=== PATIENT | male | born 1970 | race Caucasian/White ===

== ENCOUNTER 2019-10-18 01:43 | Observation (INO) ==
[2019-10-18 02:00] VITALS: BMI 26.1
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
[2019-10-18] MEDS ORDERED: TORADOL 60 MG VIAL IVP ONE (02:16)
[2019-10-18] MEDS ORDERED: ZOFRAN INJ 4 MG VIAL IVP ONE (02:16)
[2019-10-18 02:40] LABS: BASOPHILS # (AUTO) 0.1 X10^3/uL (0.0-0.1); EOSINOPHILS # (AUTO) 0.2 x10^3/uL (0.0-0.2); EOSINOPHILS % (AUTO) 1.7 % (0.9-2.9); HEMATOCRIT 48.6 % (42.0-54.0); HEMOGLOBIN 16.1 g/dL (13.5-18.0); LYMPHOCYTES # (AUTO) 1.8 X10^3/uL (1.3-2.9); LYMPHOCYTES % (AUTO) 14.7 % (21.0-51.0); MEAN CORPUSCULAR HEMOGLOBIN 28.9 pg (27.0-34.0); MEAN CORPUSCULAR HGB CONC 33.1 g/dL (33.0-35.0); MEAN CORPUSCULAR VOLUME 87.4 fL (80.0-100.0); MEAN PLATELET VOLUME 7.1 fL (7.4-11.0); MONOCYTES # (AUTO) 0.5 x10^3/uL (0.3-0.8); MONOCYTES % (AUTO) 4.5 % (0.0-13.0); NEUTROPHILS # (AUTO) 9.3 x10^3/uL (2.2-4.8); NEUTROPHILS % (AUTO) 78.1 % (42.0-75.0); PLATELET COUNT 202 X10^3/uL (150.0-450.0); RED BLOOD COUNT 5.56 X10^6/uL (4.7-6.0); RED CELL DISTRIBUTION WIDTH 14.1 % (11.6-16.5); WHITE BLOOD COUNT 11.9 X10^3/uL (3.6-10.0)
[2019-10-18 02:49] LABS: ALANINE AMINOTRANSFERASE 20 Units/L (12-78); ALBUMIN 3.7 g/dL (3.4-5.0); ALKALINE PHOSPHATASE 111 Units/L (46-116); AMYLASE 58 Units/L (25-115); ASPARTATE AMINO TRANSFERASE 22 Units/L (15-37); BLOOD UREA NITROGEN 11 mg/dL (7-18); CALCIUM 9.5 mg/dL (8.5-10.1); CARBON DIOXIDE 32.3 mmol/L (21-32); CHLORIDE 103 mmol/L (98-107); CREATININE 1.13 mg/dL (0.70-1.30); LIPASE 106 Units/L (73-393); SODIUM 142 mmol/L (136-145); TOTAL PROTEIN 8.5 g/dL (6.4-8.2); eGFR NON BLACK RACES > 60 (>60)
--- NOTE | 2019-10-18 02:59 | RAD ---
Acute abdomen series three views 4 images supine upright and chestIndication: Abdominal pain.FINDINGSThere is no pneumothorax. Lungs are minimally hyperinflated. There is no consolidation or effusion. Heart size is normal. There is no free air or pneumatosis. Mildly dilated loop of mid abdominal small bowel noted. Small amount of gas stool seen in the colonIMPRESSIONDilated loop of mid abdominal small bowel. Inflammation or developing obstruction possible. Follow-up with surgical evaluation and small-bowel follow-through.Electronically signed by: BRIANNE MAURO (Oct 18, 2019 02:57:51)
[2019-10-18] MEDS ORDERED: TORADOL 30 MG VIAL ONE (03:06)
[2019-10-18] MEDS ORDERED: ZOFRAN INJ 4 MG VIAL ONE (03:06)
--- NOTE | 2019-10-18 08:10 | CT ---
HISTORYAbdominal painSTUDYABDOMEN/PELVIS WITH CONCOMPARISONNoneTECHNIQUEMultiple axial images of the abdomen and pelvis were obtained from the lung bases to the pubic symphysis after the administration of IV contrast. Dose reduction techniques including Automated Exposure Control (AEC) and adjustment of mA and kV were utilized.FINDINGSThe visualized portions of the lung bases are unremarkable . The liver, spleen, pancreas, kidneys, and adrenal glands are unremarkable in their CT appearance. The gallbladder is unremarkable in its CT appearance. Fluid and contrast filled loops of small bowel throughout the central abdomen are observed with decompressed loops of distal ileum noted to be present. Partial small bowel obstruction would be suspected. Continued follow-up evaluation of contrast to the colon will be needed. Air and stool-filled colon is observed without contrast within the colon. Findings would be consistent with partial small bowel obstruction. No bowel wall thickening or bowel dilatation is present. The colon is unremarkable. Specifically, there is no diverticulosis noted within the sigmoid colon. The urinary bladder is grossly unremarkable. The bony structures are grossly intact.IMPRESSIONMultiple contrast in fluid-filled loops of small bowel with distension and minimal dilatation is observed throughout the abdomen. Decompressed loops of distal ileum are observed with an air and stool-filled colon. The findings would be consistent with partial small bowel obstruction continued evaluation will be needed.Electronically signed by: GUZMAN GERARD (Oct 18, 2019 08:09:15)
[2019-10-18] MEDS ORDERED: DEMEROL INJ IVP ONE (08:59)
[2019-10-18] MEDS ORDERED: SOLU-Medrol 125 MG VIAL IVP SCH (09:00)
[2019-10-18] MEDS ORDERED: LASIX IVP SCH (09:00)
[2019-10-18] MEDS ORDERED: DEMEROL INJ ONE (09:01)
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
[2019-10-18] MEDS ORDERED: DEMEROL INJ IVP PRN (09:42)
[2019-10-18] MEDS ORDERED: ROCEPHIN VIAL 1 GRAM IM ONE (09:46)
[2019-10-18] MEDS ORDERED: NS 100 ML IV 100 ML IV ONE (09:50)
[2019-10-18] MEDS ORDERED: PROTONIX INJ 40 MG VIAL ONE (09:50)
[2019-10-18] MEDS ORDERED: D5 1/2 NS 1000 ML 1,000 ML IV ONE (09:51)
[2019-10-18] MEDS ORDERED: PROTONIX INJ 40 MG VIAL 80 MG in NS 100 ML IV 80 ML IV SCH (10:00)
[2019-10-18] MEDS: D5 1/2 NS 1000 ML 1,000 ML IV SCH ×3 (10:03→18:58)
[2019-10-18] MEDS ORDERED: ROCEPHIN VIAL 1 GRAM ONE (10:07)
[2019-10-18] MEDS ORDERED: XYLOCAINE 1 % (PLAIN) ONE (10:07)
[2019-10-18] MEDS ORDERED: XYLOCAINE 1 % (PLAIN) IM ONE (10:17)
[2019-10-18] MEDS ORDERED: ZOFRAN INJ 4 MG VIAL IVP PRN (15:34)
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
[2019-10-18] MEDS: ZOSYN VIAL 3.375 GRAMS 3.375 G in NS 100 ML IV + SPIKE MINIBAG* 100 ML IV SCH ×2 (16:11→21:30)
[2019-10-18 16:32] LABS: BILIRUBIN,URINE 1+ (NEGATIVE); BLOOD/HEMOGLOBIN,URINE 1+ (NEGATIVE); GLUCOSE, URINE NEGATIVE (NEGATIVE); KETONES,URINE 2+ (NEGATIVE); LEUKOCYTE ESTERASE ,URINE 1+ (NEGATIVE); NITRITES,URINE NEGATIVE (NEGATIVE); PROTEIN,URINE 3+ (NEGATIVE); UROBILINOGEN,URINE 2+ (NORMAL)
[2019-10-18 16:50] LABS: APPEARANCE,URINE CLEAR (CLEAR); BACTERIA,URINE NEGATIVE /HPF (NEGATIVE); COLOR,URINE AMBER (YELLOW); RBC,URINE 0-2 /HPF (0-3); SQUAMOUS EPITHELIAL CELL,UR RARE /HPF (NEGATIVE)
[2019-10-18] MEDS: PROTONIX INJ 40 MG VIAL IVP SCH (20:13)
[2019-10-19] MEDS: D5 1/2 NS 1000 ML 1,000 ML IV SCH ×3 (03:00→18:36)
[2019-10-19] MEDS: ZOSYN VIAL 3.375 GRAMS 3.375 G in NS 100 ML IV + SPIKE MINIBAG* 100 ML IV SCH ×3 (05:00→21:26)
[2019-10-19 05:46] LABS: BASOPHILS % (AUTO) 0.4 % (0.2-1.0); EOSINOPHILS # (AUTO) 0.1 x10^3/uL (0.0-0.2); EOSINOPHILS % (AUTO) 1.8 % (0.9-2.9); HEMATOCRIT 44.1 % (42.0-54.0); HEMOGLOBIN 14.7 g/dL (13.5-18.0); LYMPHOCYTES # (AUTO) 1.9 X10^3/uL (1.3-2.9); MEAN CORPUSCULAR HEMOGLOBIN 29.5 pg (27.0-34.0); MEAN CORPUSCULAR HGB CONC 33.3 g/dL (33.0-35.0); MEAN CORPUSCULAR VOLUME 88.5 fL (80.0-100.0); MEAN PLATELET VOLUME 7.7 fL (7.4-11.0); MONOCYTES # (AUTO) 0.6 x10^3/uL (0.3-0.8); MONOCYTES % (AUTO) 8.6 % (0.0-13.0); NEUTROPHILS # (AUTO) 4.7 x10^3/uL (2.2-4.8); NEUTROPHILS % (AUTO) 63.2 % (42.0-75.0); PLATELET COUNT 215 X10^3/uL (150.0-450.0); RED BLOOD COUNT 4.98 X10^6/uL (4.7-6.0); RED CELL DISTRIBUTION WIDTH 14.2 % (11.6-16.5); WHITE BLOOD COUNT 7.4 X10^3/uL (3.6-10.0)
[2019-10-19 05:56] LABS: ALANINE AMINOTRANSFERASE 17 Units/L (12-78); ALBUMIN 2.8 g/dL (3.4-5.0); ALKALINE PHOSPHATASE 83 Units/L (46-116); ASPARTATE AMINO TRANSFERASE 18 Units/L (15-37); BLOOD UREA NITROGEN 13 mg/dL (7-18); CALCIUM 8.6 mg/dL (8.5-10.1); CARBON DIOXIDE 31.3 mmol/L (21-32); CHLORIDE 103 mmol/L (98-107); COR CA(FOR HYPOALB) 9.6 mg/dL (8.5-10.1); CREATININE 1.14 mg/dL (0.70-1.30); SODIUM 140 mmol/L (136-145); TOTAL PROTEIN 6.9 g/dL (6.4-8.2); eGFR NON BLACK RACES > 60 (>60)
--- NOTE | 2019-10-19 06:37 | RAD ---
HISTORYAbdominal painSTUDYKUBCOMPARISONCT abdomen pelvis 10/18/2019FINDINGSThere are some mildly dilated small bowel loops in the left upper quadrant but with gas distally within more normal small bowel in the right lower quadrant and within the colon. Findings could still be consistent with a partial small bowel obstruction versus ileus. No abnormal masses or abnormal calcifications are identified. The regional skeleton is intact.IMPRESSIONFindings consistent either with a mild partial small bowel obstruction or ileusElectronically signed by: CARITO VEGA (Oct 19, 2019 06:36:29)
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
[2019-10-19] MEDS: PROTONIX INJ 40 MG VIAL IVP SCH ×2 (10:22→21:27)
--- NOTE | 2019-10-19 11:19 | DR.PROGNOT ---
Hospital Progress Notes - Progress Note for Day of: Progress Note Date: 10/19/19 - Chief Complaint Chief Complaint: less abdominal pain . no nausea or vomiting today . abdominal xray still showing partial SBO . had small BM last night. - Past Medical Family Social History Past Med/Fam/Surg Hx: No changes since H&P Allergies: Allergies No Known Drug Allergies Allergy (Verified 10/18/19 02:01) - Review Of Systems ROS: No change since H&P - Vital Signs Vital Signs: Temperature 98.2 F Pulse Rate [Right Brachial] 80 Pulse Rate 73 Respiratory Rate 18 Blood Pressure [Right Arm] 128/72 Blood Pressure [Left Arm] 135/79 Blood Pressure 159/83 O2 Sat by Pulse Oximetry 98 - Physical Exam Oriented: Normal Eyes: Normal Respiratory: Normal Cardiovascular: Normal GI:Auscultation: Decreased GI: Tenderness: Mild, Periumbilical Skin: Normal Musculoskeletal: Normal Psychiatric: Normal Mood Description: Calm Affect: Normal Speech Pattern: Clear, Appropriate - Laboratory and Diagnostics Result Diagrams: 10/19/19 05:03 10/19/19 05:03 Labs: Laboratory WBC 7.4 X10^3/uL (3.6-10.0) 10/19/19 05:03 RBC 4.98 X10^6/uL (4.7-6.0) 10/19/19 05:03 Hgb 14.7 g/dL (13.5-18.0) 10/19/19 05:03 Hct 44.1 % (42.0-54.0) 10/19/19 05:03 MCV 88.5 fL (80.0-100.0) 10/19/19 05:03 MCH 29.5 pg (27.0-34.0) 10/19/19 05:03 MCHC 33.3 g/dL (33.0-35.0) 10/19/19 05:03 RDW 14.2 % (11.6-16.5) 10/19/19 05:03 Plt Count 215 X10^3/uL (150.0-450.0) 10/19/19 05:03 MPV 7.7 fL (7.4-11.0) 10/19/19 05:03 Neut % (Auto) 63.2 % (42.0-75.0) 10/19/19 05:03 Lymph % (Auto) 26.0 % (21.0-51.0) 10/19/19 05:03 [place] % (Auto) 8.6 % (0.0-13.0) 10/19/19 05:03 Eos % (Auto) 1.8 % (0.9-2.9) 10/19/19 05:03 Baso % (Auto) 0.4 % (0.2-1.0) 10/19/19 05:03 Neut # (Auto) 4.7 x10^3/uL (2.2-4.8) 10/19/19 05:03 Lymph # (Auto) 1.9 X10^3/uL (1.3-2.9) 10/19/19 05:03 [place] # (Auto) 0.6 x10^3/uL (0.3-0.8) 10/19/19 05:03 Eos # (Auto) 0.1 x10^3/uL (0.0-0.2) 10/19/19 05:03 Baso # (Auto) 0.0 X10^3/uL (0.0-0.1) 10/19/19 05:03 Absolute Nucleated RBC 0.0 /100WBC 10/19/19 05:03 Sodium 140 mmol/L (136-145) 10/19/19 05:03 Corrected Sodium TNP 10/19/19 05:03 Potassium 3.8 mmol/L (3.5-5.1) 10/19/19 05:03 Chloride 103 mmol/L (98-107) 10/19/19 05:03 Carbon Dioxide 31.3 mmol/L (21-32) 10/19/19 05:03 BUN 13 mg/dL (7-18) 10/19/19 05:03 Creatinine 1.14 mg/dL (0.70-1.30) 10/19/19 05:03 Est GFR (MDRD) Af Amer > 60 (>60) 10/19/19 05:03 Est GFR (MDRD) Non-Af > 60 (>60) 10/19/19 05:03 Glucose 102 mg/dL (65-99) H 10/19/19 05:03 Calcium 8.6 mg/dL (8.5-10.1) 10/19/19 05:03 Corrected Calcium 9.6 mg/dL (8.5-10.1) 10/19/19 05:03 Magnesium 1.8 mg/dL (1.7-2.9) 10/19/19 05:03 Total Bilirubin 0.70 mg/dL (0.2-1.0) 10/19/19 05:03 AST 18 Units/L (15-37) 10/19/19 05:03 ALT 17 Units/L (12-78) 10/19/19 05:03 Alkaline Phosphatase 83 Units/L (46-116) 10/19/19 05:03 Total Protein 6.9 g/dL (6.4-8.2) 10/19/19 05:03 Albumin 2.8 g/dL (3.4-5.0) L 10/19/19 05:03 Globulin 4.1 g/dL (2.5-4.5) 10/19/19 05:03 Albumin/Globulin Ratio 0.7 Ratio (1.1-2.1) L 10/19/19 05:03 Amylase 58 Units/L (25-115) 10/18/19 02:25 Lipase 106 Units/L (73-393) 10/18/19 02:25 Specimen Type Clean catch urine 10/18/19 16:11 Urine Color [place] (YELLOW) 10/18/19 16:11 Urine Appearance Clear (CLEAR) 10/18/19 16:11 Urine pH 5.0 (5.0 - 8.0) 10/18/19 16:11 Ur Specific [place] 1.015 (1.000-1.030) 10/18/19 16:11 Urine Protein 3+ (NEGATIVE) 10/18/19 16:11 Urine Glucose (UA) Negative (NEGATIVE) 10/18/19 16:11 Urine Ketones 2+ (NEGATIVE) 10/18/19 16:11 Urine Occult Blood 1+ (NEGATIVE) 10/18/19 16:11 Urine Nitrite Negative (NEGATIVE) 10/18/19 16:11 Urine Bilirubin 1+ (NEGATIVE) 10/18/19 16:11 Urine Urobilinogen 2+ (NORMAL) 10/18/19 16:11 Ur Leukocyte Esterase 1+ (NEGATIVE) 10/18/19 16:11 Urine RBC 0-2 /HPF (0-3) 10/18/19 16:11 Urine WBC 0-2 /HPF (0-5) 10/18/19 16:11 Ur Squamous Epith Cells Rare /HPF (NEGATIVE) 10/18/19 16:11 Urine Bacteria Negative /HPF (NEGATIVE) 10/18/19 16:11 Ur Culture Indicated? No/not indicated 10/18/19 16:11 - Assessment and Plan 1: tesolving partial SBO . abdominal adhesions . start on clear liquid today . - Problem Patient Problems: Patient Problems History of colon resection (Acute) Z90.49 Hypertension (Acute) I10 Partial small bowel obstruction (Acute) K56.600
[2019-10-20] MEDS: D5 1/2 NS 1000 ML 1,000 ML IV SCH ×2 (02:02→12:01)
[2019-10-20] MEDS: ZOSYN VIAL 3.375 GRAMS 3.375 G in NS 100 ML IV + SPIKE MINIBAG* 100 ML IV SCH ×2 (05:05→15:53)
--- NOTE | 2019-10-20 07:22 | RAD ---
HISTORYSmall bowel [id number] is a single loop of dilated small bowel the left upper quadrant. Gas is present distally within the small bowel and colon. The degree of distension o f this loop has decreased. Findings could be consistent with partial small bowel obstruction or ileus . No abnormal masses or abnormal calcifications are identified. The regional skeleton is intact.IMPRE SSIONNo significant abnormality identifiedElectronically signed by: CARITO VEGA (Oct 20, 2019 07:20 :09)
[2019-10-20] MEDS: PROTONIX INJ 40 MG VIAL IVP SCH (08:22)
--- NOTE | 2019-10-20 11:32 | DR.PROGNOT ---
Hospital Progress Notes - Progress Note for Day of: Progress Note Date: 10/20/19 - Chief Complaint Chief Complaint: less abdominal pain . no nausea or vomiting today . abdominal xray was reported as normal . - Past Medical Family Social History Past Med/Fam/Surg Hx: No changes since H&P Allergies: Allergies No Known Drug Allergies Allergy (Verified 10/18/19 02:01) - Review Of Systems ROS: No change since H&P - Vital Signs Vital Signs: Temperature 97.9 F Pulse Rate [Right Brachial] 68 Pulse Rate 73 Respiratory Rate 20 Blood Pressure [Right Arm] 134/78 Blood Pressure [Left Arm] 135/79 Blood Pressure 159/83 O2 Sat by Pulse Oximetry 99 - Physical Exam Oriented: Normal Eyes: Normal Respiratory: Normal Cardiovascular: Normal GI:Auscultation: Decreased GI: Tenderness: Mild, Periumbilical Skin: Normal Musculoskeletal: Normal Psychiatric: Normal Mood Description: Calm Affect: Normal Speech Pattern: Clear, Appropriate - Laboratory and Diagnostics Result Diagrams: 10/19/19 05:03 10/19/19 05:03 Labs: Laboratory WBC 7.4 X10^3/uL (3.6-10.0) 10/19/19 05:03 RBC 4.98 X10^6/uL (4.7-6.0) 10/19/19 05:03 Hgb 14.7 g/dL (13.5-18.0) 10/19/19 05:03 Hct 44.1 % (42.0-54.0) 10/19/19 05:03 MCV 88.5 fL (80.0-100.0) 10/19/19 05:03 MCH 29.5 pg (27.0-34.0) 10/19/19 05:03 MCHC 33.3 g/dL (33.0-35.0) 10/19/19 05:03 RDW 14.2 % (11.6-16.5) 10/19/19 05:03 Plt Count 215 X10^3/uL (150.0-450.0) 10/19/19 05:03 MPV 7.7 fL (7.4-11.0) 10/19/19 05:03 Neut % (Auto) 63.2 % (42.0-75.0) 10/19/19 05:03 Lymph % (Auto) 26.0 % (21.0-51.0) 10/19/19 05:03 [place] % (Auto) 8.6 % (0.0-13.0) 10/19/19 05:03 Eos % (Auto) 1.8 % (0.9-2.9) 10/19/19 05:03 Baso % (Auto) 0.4 % (0.2-1.0) 10/19/19 05:03 Neut # (Auto) 4.7 x10^3/uL (2.2-4.8) 10/19/19 05:03 Lymph # (Auto) 1.9 X10^3/uL (1.3-2.9) 10/19/19 05:03 [place] # (Auto) 0.6 x10^3/uL (0.3-0.8) 10/19/19 05:03 Eos # (Auto) 0.1 x10^3/uL (0.0-0.2) 10/19/19 05:03 Baso # (Auto) 0.0 X10^3/uL (0.0-0.1) 10/19/19 05:03 Absolute Nucleated RBC 0.0 /100WBC 10/19/19 05:03 Sodium 140 mmol/L (136-145) 10/19/19 05:03 Corrected Sodium TNP 10/19/19 05:03 Potassium 3.8 mmol/L (3.5-5.1) 10/19/19 05:03 Chloride 103 mmol/L (98-107) 10/19/19 05:03 Carbon Dioxide 31.3 mmol/L (21-32) 10/19/19 05:03 BUN 13 mg/dL (7-18) 10/19/19 05:03 Creatinine 1.14 mg/dL (0.70-1.30) 10/19/19 05:03 Est GFR (MDRD) Af Amer > 60 (>60) 10/19/19 05:03 Est GFR (MDRD) Non-Af > 60 (>60) 10/19/19 05:03 Glucose 102 mg/dL (65-99) H 10/19/19 05:03 Calcium 8.6 mg/dL (8.5-10.1) 10/19/19 05:03 Corrected Calcium 9.6 mg/dL (8.5-10.1) 10/19/19 05:03 Magnesium 1.8 mg/dL (1.7-2.9) 10/19/19 05:03 Total Bilirubin 0.70 mg/dL (0.2-1.0) 10/19/19 05:03 AST 18 Units/L (15-37) 10/19/19 05:03 ALT 17 Units/L (12-78) 10/19/19 05:03 Alkaline Phosphatase 83 Units/L (46-116) 10/19/19 05:03 Total Protein 6.9 g/dL (6.4-8.2) 10/19/19 05:03 Albumin 2.8 g/dL (3.4-5.0) L 10/19/19 05:03 Globulin 4.1 g/dL (2.5-4.5) 10/19/19 05:03 Albumin/Globulin Ratio 0.7 Ratio (1.1-2.1) L 10/19/19 05:03 Amylase 58 Units/L (25-115) 10/18/19 02:25 Lipase 106 Units/L (73-393) 10/18/19 02:25 Specimen Type Clean catch urine 10/18/19 16:11 Urine Color [place] (YELLOW) 10/18/19 16:11 Urine Appearance Clear (CLEAR) 10/18/19 16:11 Urine pH 5.0 (5.0 - 8.0) 10/18/19 16:11 Ur Specific [place] 1.015 (1.000-1.030) 10/18/19 16:11 Urine Protein 3+ (NEGATIVE) 10/18/19 16:11 Urine Glucose (UA) Negative (NEGATIVE) 10/18/19 16:11 Urine Ketones 2+ (NEGATIVE) 10/18/19 16:11 Urine Occult Blood 1+ (NEGATIVE) 10/18/19 16:11 Urine Nitrite Negative (NEGATIVE) 10/18/19 16:11 Urine Bilirubin 1+ (NEGATIVE) 10/18/19 16:11 Urine Urobilinogen 2+ (NORMAL) 10/18/19 16:11 Ur Leukocyte Esterase 1+ (NEGATIVE) 10/18/19 16:11 Urine RBC 0-2 /HPF (0-3) 10/18/19 16:11 Urine WBC 0-2 /HPF (0-5) 10/18/19 16:11 Ur Squamous Epith Cells Rare /HPF (NEGATIVE) 10/18/19 16:11 Urine Bacteria Negative /HPF (NEGATIVE) 10/18/19 16:11 Ur Culture Indicated? No/not indicated 10/18/19 16:11 - Assessment and Plan 1: tesolving partial SBO . abdominal adhesions . start on soft diet . may be d/c . to follow in one week and arrange for colonoscopy as OP . - Problem Patient Problems: Patient Problems History of colon resection (Acute) Z90.49 Hypertension (Acute) I10 Partial small bowel obstruction (Acute) K56.600
[2019-10-20 12:24] VITALS: BP 137/64
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
== END 2019-10-20 14:50 | disposition home or self-care (01) ==
LOC: MED/SURG 01:46 → ER 01:46 → MED/SURG 11:32
PROVIDERS: ADMIT Internal Medicine; ATTEND Internal Medicine
DX: R10.13 Epigastric pain; K56.51 Intestinal adhesions [bands], with partial obstruction; J44.9 Chronic obstructive pulmonary disease, unspecified; Z90.49 Acquired absence of other specified parts of digestive tract; I10 Essential (primary) hypertension
CPT/HCPCS: 36415; 74000; 74018; 74022; 74177; 80053; 81001; 82150; 83690; 83735; 85025; 96360; 96361; 96365; 96372; 96374; 96375; 99284; A4216; A4222; C9113; G0378; J0696; J1885; J2175; J2405; J2543; J7050; S5010

== ENCOUNTER 2019-10-27 13:36 | Inpatient (IN) ==
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
[2019-10-27] MEDS ORDERED: REGLAN INJ 10 MG VIAL IVP PRN (14:07)
[2019-10-27 14:22] LABS: BASOPHILS # (AUTO) 0.1 X10^3/uL (0.0-0.1); BASOPHILS % (AUTO) 0.8 % (0.2-1.0); EOSINOPHILS # (AUTO) 0.2 x10^3/uL (0.0-0.2); EOSINOPHILS % (AUTO) 1.5 % (0.9-2.9); HEMOGLOBIN 16.7 g/dL (13.5-18.0); LYMPHOCYTES # (AUTO) 1.9 X10^3/uL (1.3-2.9); LYMPHOCYTES % (AUTO) 17.7 % (21.0-51.0); MEAN CORPUSCULAR HEMOGLOBIN 29.4 pg (27.0-34.0); MEAN CORPUSCULAR HGB CONC 33.3 g/dL (33.0-35.0); MEAN CORPUSCULAR VOLUME 88.2 fL (80.0-100.0); MEAN PLATELET VOLUME 7.2 fL (7.4-11.0); MONOCYTES # (AUTO) 0.5 x10^3/uL (0.3-0.8); MONOCYTES % (AUTO) 4.9 % (0.0-13.0); NEUTROPHILS # (AUTO) 8.1 x10^3/uL (2.2-4.8); NEUTROPHILS % (AUTO) 75.1 % (42.0-75.0); PLATELET COUNT 268 X10^3/uL (150.0-450.0); RED BLOOD COUNT 5.68 X10^6/uL (4.7-6.0); RED CELL DISTRIBUTION WIDTH 14.3 % (11.6-16.5); WHITE BLOOD COUNT 10.8 X10^3/uL (3.6-10.0)
[2019-10-27] MEDS ORDERED: REGLAN INJ 10 MG VIAL ONE (14:28)
[2019-10-27 14:29] LABS: ALANINE AMINOTRANSFERASE 24 Units/L (12-78); ALBUMIN 3.9 g/dL (3.4-5.0); ALKALINE PHOSPHATASE 106 Units/L (46-116); AMYLASE 63 Units/L (25-115); ASPARTATE AMINO TRANSFERASE 21 Units/L (15-37); BLOOD UREA NITROGEN 11 mg/dL (7-18); CALCIUM 9.6 mg/dL (8.5-10.1); CARBON DIOXIDE 30.2 mmol/L (21-32); CHLORIDE 99 mmol/L (98-107); COR NA(FOR HYPERGLY) 137 mmol/L (136-145); CREATININE 0.98 mg/dL (0.70-1.30); LIPASE 82 Units/L (73-393); SODIUM 137 mmol/L (136-145); TOTAL PROTEIN 8.9 g/dL (6.4-8.2); eGFR NON BLACK RACES > 60 (>60)
--- NOTE | 2019-10-27 14:48 | RAD ---
HISTORYAbdominal painSTUDYAcute abdominal seriesCOMPARISONJanuary 2019FINDINGSThe lungs are clear and well inflated. The heart and mediastinum are unremarkable. No bony abnormality is demonstrated.There is a persistent dilated loop of mid epigastric small bowel up to 6 cm diameter with an air-fluid level. Colon is nondistended. There is no free air.IMPRESSIONPersistent dilated mid loop of small bowel suggesting persistent small-bowel obstructionElectronically signed by: TAINA CARRERO (Oct 27, 2019 14:45:22)
[2019-10-27] MEDS ORDERED: DEMEROL INJ ONE (16:16)
[2019-10-27] MEDS ORDERED: NS 1000 ML 1,000 ML ONE (16:17)
[2019-10-27] MEDS: DEMEROL INJ IVP PRN (16:22)
[2019-10-27] MEDS: NS 1000 ML 1,000 ML IV SCH (16:24)
--- NOTE | 2019-10-27 16:40 | RAD ---
HISTORYTube [id number] gas pattern is unremarkable. There is a nasogastric tub e in place the tip along the fundus of the stomach. No renal stones are seen. The bones are intact.IM PRESSIONStat post gastric tube placement along the fundus of the stomach with a nonspecific gas patte rn.Electronically signed by: PRISCILLA RIVAS (Oct 27, 2019 16:39:11)
[2019-10-27 18:18] VITALS: BMI 24.7
[2019-10-28] MEDS: NS 1000 ML 1,000 ML IV SCH ×4 (03:36→19:02)
[2019-10-28] MEDS ORDERED: CHLORASEPTIC SPRAY MT PRN (05:26)
[2019-10-28 05:27] LABS: BILIRUBIN,URINE NEGATIVE (NEGATIVE); BLOOD/HEMOGLOBIN,URINE NEGATIVE (NEGATIVE); GLUCOSE, URINE NEGATIVE (NEGATIVE); KETONES,URINE NEGATIVE (NEGATIVE); LEUKOCYTE ESTERASE ,URINE 1+ (NEGATIVE); NITRITES,URINE NEGATIVE (NEGATIVE); PROTEIN,URINE 2+ (NEGATIVE); UROBILINOGEN,URINE NORMAL (NORMAL)
[2019-10-28 05:49] LABS: APPEARANCE,URINE CLEAR (CLEAR); BACTERIA,URINE NEGATIVE /HPF (NEGATIVE); COLOR,URINE DARK YELLOW (YELLOW); RBC,URINE 0-2 /HPF (0-3); SQUAMOUS EPITHELIAL CELL,UR RARE /HPF (NEGATIVE)
[2019-10-28 05:50] LABS: MUCUS,URINE RARE /HPF (NEGATIVE)
[2019-10-28 06:11] LABS: BASOPHILS % (AUTO) 0.5 % (0.2-1.0); EOSINOPHILS # (AUTO) 0.1 x10^3/uL (0.0-0.2); EOSINOPHILS % (AUTO) 1.7 % (0.9-2.9); HEMATOCRIT 45.5 % (42.0-54.0); HEMOGLOBIN 15.3 g/dL (13.5-18.0); LYMPHOCYTES # (AUTO) 1.7 X10^3/uL (1.3-2.9); LYMPHOCYTES % (AUTO) 20.1 % (21.0-51.0); MEAN CORPUSCULAR HEMOGLOBIN 29.3 pg (27.0-34.0); MEAN CORPUSCULAR HGB CONC 33.7 g/dL (33.0-35.0); MEAN CORPUSCULAR VOLUME 87.2 fL (80.0-100.0); MEAN PLATELET VOLUME 6.8 fL (7.4-11.0); MONOCYTES # (AUTO) 0.5 x10^3/uL (0.3-0.8); MONOCYTES % (AUTO) 5.7 % (0.0-13.0); NEUTROPHILS # (AUTO) 6.1 x10^3/uL (2.2-4.8); PLATELET COUNT 232 X10^3/uL (150.0-450.0); RED BLOOD COUNT 5.22 X10^6/uL (4.7-6.0); RED CELL DISTRIBUTION WIDTH 14.2 % (11.6-16.5); WHITE BLOOD COUNT 8.5 X10^3/uL (3.6-10.0)
[2019-10-28 06:29] LABS: ALANINE AMINOTRANSFERASE 21 Units/L (12-78); ALBUMIN 3.3 g/dL (3.4-5.0); ALKALINE PHOSPHATASE 95 Units/L (46-116); ASPARTATE AMINO TRANSFERASE 19 Units/L (15-37); BLOOD UREA NITROGEN 11 mg/dL (7-18); CALCIUM 8.8 mg/dL (8.5-10.1); CARBON DIOXIDE 30.2 mmol/L (21-32); CHLORIDE 101 mmol/L (98-107); COR CA(FOR HYPOALB) 9.4 mg/dL (8.5-10.1); SODIUM 138 mmol/L (136-145); TOTAL PROTEIN 7.7 g/dL (6.4-8.2); eGFR NON BLACK RACES > 60 (>60)
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
[2019-10-28] MEDS ORDERED: AFLURIA II4 or FLUARIX II4 IM ONE ×2 (09:00→23:17)
--- NOTE | 2019-10-28 09:54 | RAD ---
HISTORYAbdominal [id number]/16/2020FINDINGSThere is a nasogastric tube with its tip within the stomach a nd the side hole likely within the distal esophagus. Advancement is recommended. The abdominal gas pa ttern is nonspecific and nonobstructive. No abnormal masses or abnormal calcifications are identified . The regional skeleton is intact.IMPRESSIONNasogastric tube tip within the stomach however the side hole is likely in the distal esophagus and advancement is recommendedNonspecific bowel gas patternEle ctronically signed by: CARITO VEGA (Oct 28, 2019 09:52:50)
--- NOTE | 2019-10-28 14:21 | DR.PROGNOT ---
Hospital Progress Notes - Progress Note for Day of: Progress Note Date: 10/28/19 - Chief Complaint Chief Complaint: no abdominal pain . no nausea or vomiting . repeated abdominal xray was read as normal ,no obstruction. normal lab work , - Past Medical Family Social History Past Med/Fam/Surg Hx: No changes since H&P Allergies: Allergies No Known Drug Allergies Allergy (Verified 10/27/19 13:38) - Review Of Systems ROS: No change since H&P - Vital Signs Vital Signs: Temperature 98.1 F Pulse Rate [Left Brachial] 68 Pulse Rate 84 Respiratory Rate 18 Blood Pressure [Left Arm] 141/84 Blood Pressure [Right Arm] 154/84 Blood Pressure 141/85 O2 Sat by Pulse Oximetry 99 - Physical Exam Oriented: Normal Eyes: Normal Ear: Normal Nose: Normal Throat: Normal Cardiovascular: Normal : Normal GI:Auscultation: Normal GI:Palpation: Normal GI: Tenderness: Diffuse (only mild diffuse abdominal tenderness . BS+), LLQ. negative: Rebound, Guarding, Rigidity Skin: Normal Musculoskeletal: Normal Psychiatric: Normal Mood Description: Calm Affect: Normal Speech Pattern: Clear - Laboratory and Diagnostics Result Diagrams: 10/28/19 05:47 10/28/19 05:47 Labs: Laboratory WBC 8.5 X10^3/uL (3.6-10.0) 10/28/19 05:47 RBC 5.22 X10^6/uL (4.7-6.0) 10/28/19 05:47 Hgb 15.3 g/dL (13.5-18.0) 10/28/19 05:47 Hct 45.5 % (42.0-54.0) 10/28/19 05:47 MCV 87.2 fL (80.0-100.0) 10/28/19 05:47 MCH 29.3 pg (27.0-34.0) 10/28/19 05:47 MCHC 33.7 g/dL (33.0-35.0) 10/28/19 05:47 RDW 14.2 % (11.6-16.5) 10/28/19 05:47 Plt Count 232 X10^3/uL (150.0-450.0) 10/28/19 05:47 MPV 6.8 fL (7.4-11.0) L 10/28/19 05:47 Neut % (Auto) 72.0 % (42.0-75.0) 10/28/19 05:47 Lymph % (Auto) 20.1 % (21.0-51.0) L 10/28/19 05:47 [place] % (Auto) 5.7 % (0.0-13.0) 10/28/19 05:47 Eos % (Auto) 1.7 % (0.9-2.9) 10/28/19 05:47 Baso % (Auto) 0.5 % (0.2-1.0) 10/28/19 05:47 Neut # (Auto) 6.1 x10^3/uL (2.2-4.8) H 10/28/19 05:47 Lymph # (Auto) 1.7 X10^3/uL (1.3-2.9) 10/28/19 05:47 [place] # (Auto) 0.5 x10^3/uL (0.3-0.8) 10/28/19 05:47 Eos # (Auto) 0.1 x10^3/uL (0.0-0.2) 10/28/19 05:47 Baso # (Auto) 0.0 X10^3/uL (0.0-0.1) 10/28/19 05:47 Absolute Nucleated RBC 0.1 /100WBC 10/28/19 05:47 Sodium 138 mmol/L (136-145) 10/28/19 05:47 Corrected Sodium TNP 10/28/19 05:47 Potassium 3.7 mmol/L (3.5-5.1) 10/28/19 05:47 Chloride 101 mmol/L (98-107) 10/28/19 05:47 Carbon Dioxide 30.2 mmol/L (21-32) 10/28/19 05:47 BUN 11 mg/dL (7-18) 10/28/19 05:47 Creatinine 1.00 mg/dL (0.70-1.30) 10/28/19 05:47 Est GFR (MDRD) Af Amer > 60 (>60) 10/28/19 05:47 Est GFR (MDRD) Non-Af > 60 (>60) 10/28/19 05:47 Glucose 96 mg/dL (65-99) 10/28/19 05:47 POC Glucose (mg/dL) 81 mg/dL (65-99) 10/28/19 11:08 Calcium 8.8 mg/dL (8.5-10.1) 10/28/19 05:47 Corrected Calcium 9.4 mg/dL (8.5-10.1) 10/28/19 05:47 Total Bilirubin 0.60 mg/dL (0.2-1.0) 10/28/19 05:47 AST 19 Units/L (15-37) 10/28/19 05:47 ALT 21 Units/L (12-78) 10/28/19 05:47 Alkaline Phosphatase 95 Units/L (46-116) 10/28/19 05:47 Total Protein 7.7 g/dL (6.4-8.2) 10/28/19 05:47 Albumin 3.3 g/dL (3.4-5.0) L 10/28/19 05:47 Globulin 4.4 g/dL (2.5-4.5) 10/28/19 05:47 Albumin/Globulin Ratio 0.8 Ratio (1.1-2.1) L 10/28/19 05:47 Amylase 63 Units/L (25-115) 10/27/19 13:55 Lipase 82 Units/L (73-393) 10/27/19 13:55 Specimen Type Clean catch urine 10/28/19 05:05 Urine Color Dark yellow (YELLOW) 10/28/19 05:05 Urine Appearance Clear (CLEAR) 10/28/19 05:05 Urine pH 6.0 (5.0 - 8.0) 10/28/19 05:05 Ur Specific [place] 1.020 (1.000-1.030) 10/28/19 05:05 Urine Protein 2+ (NEGATIVE) 10/28/19 05:05 Urine Glucose (UA) Negative (NEGATIVE) 10/28/19 05:05 Urine Ketones Negative (NEGATIVE) 10/28/19 05:05 Urine Occult Blood Negative (NEGATIVE) 10/28/19 05:05 Urine Nitrite Negative (NEGATIVE) 10/28/19 05:05 Urine Bilirubin Negative (NEGATIVE) 10/28/19 05:05 Urine Urobilinogen Normal (NORMAL) 10/28/19 05:05 Ur Leukocyte Esterase 1+ (NEGATIVE) 10/28/19 05:05 Urine RBC 0-2 /HPF (0-3) 10/28/19 05:05 Urine WBC 0-2 /HPF (0-5) 10/28/19 05:05 Ur Squamous Epith Cells Rare /HPF (NEGATIVE) 10/28/19 05:05 Urine Bacteria Negative /HPF (NEGATIVE) 10/28/19 05:05 Urine Mucus Rare /HPF (NEGATIVE) 10/28/19 05:05 Ur Culture Indicated? No/not indicated 10/28/19 05:05 - Assessment and Plan 1: resolving small bowel obstruction . to D/C NGT , advance diet and discharge if tolerating diet . will follow in one week . - Problem Patient Problems: Patient Problems Small bowel obstruction (Acute) K56.609 Partial small bowel obstruction (Acute) K56.600
[2019-10-29] MEDS: NS 1000 ML 1,000 ML IV SCH (05:52)
--- NOTE | 2019-10-29 06:11 | RAD ---
HISTORYsobSTUDYCHEST, 1 VIEWCOMPARISONNone availableFINDINGSThe trachea is midline. Heart size is normal. No focal airspace opacity, pleural effusion or pneumothorax. No acute osseous abnormality.IMPRESSIONNo acute cardiopulmonary disease.Electronically signed by: JONNATHAN QUINTERO (Oct 29, 2019 06:09:34)
--- NOTE | 2019-10-29 06:14 | RAD ---
Exam:KUBIndication: sobComparison: [None available]Findings: [The bowel gas pattern is unremarkable, specifically there is no radiographic evidence to suggest an obstruction. No free air or pneumatosis.No definite mass or abnormal calcification within the abdomen or pelvis.No acute osseous abnormality.Impression:No acute radiographic abnormality within the abdomen or pelvis.]Electronically signed by: JONNATHAN QUINTERO (Oct 29, 2019 06:12:55)
[2019-10-29 06:26] LABS: BASOPHILS % (AUTO) 0.7 % (0.2-1.0); EOSINOPHILS # (AUTO) 0.1 x10^3/uL (0.0-0.2); EOSINOPHILS % (AUTO) 1.9 % (0.9-2.9); HEMATOCRIT 42.6 % (42.0-54.0); HEMOGLOBIN 14.1 g/dL (13.5-18.0); LYMPHOCYTES # (AUTO) 1.2 X10^3/uL (1.3-2.9); LYMPHOCYTES % (AUTO) 19.2 % (21.0-51.0); MEAN CORPUSCULAR HEMOGLOBIN 29.4 pg (27.0-34.0); MEAN CORPUSCULAR HGB CONC 33.2 g/dL (33.0-35.0); MEAN CORPUSCULAR VOLUME 88.6 fL (80.0-100.0); MEAN PLATELET VOLUME 7.4 fL (7.4-11.0); MONOCYTES # (AUTO) 0.5 x10^3/uL (0.3-0.8); MONOCYTES % (AUTO) 7.5 % (0.0-13.0); NEUTROPHILS # (AUTO) 4.3 x10^3/uL (2.2-4.8); NEUTROPHILS % (AUTO) 70.7 % (42.0-75.0); PLATELET COUNT 216 X10^3/uL (150.0-450.0); RED BLOOD COUNT 4.81 X10^6/uL (4.7-6.0); RED CELL DISTRIBUTION WIDTH 14.3 % (11.6-16.5); WHITE BLOOD COUNT 6.1 X10^3/uL (3.6-10.0)
[2019-10-29 06:46] LABS: ALANINE AMINOTRANSFERASE 18 Units/L (12-78); ALBUMIN 2.9 g/dL (3.4-5.0); ALKALINE PHOSPHATASE 91 Units/L (46-116); ASPARTATE AMINO TRANSFERASE 17 Units/L (15-37); BLOOD UREA NITROGEN 10 mg/dL (7-18); CALCIUM 8.2 mg/dL (8.5-10.1); CARBON DIOXIDE 29.4 mmol/L (21-32); CHLORIDE 102 mmol/L (98-107); COR CA(FOR HYPOALB) 9.1 mg/dL (8.5-10.1); CREATININE 0.97 mg/dL (0.70-1.30); SODIUM 137 mmol/L (136-145); TOTAL PROTEIN 6.8 g/dL (6.4-8.2); eGFR NON BLACK RACES > 60 (>60)
[2019-10-29 13:09] VITALS: BP 125/71
== END 2019-10-29 13:10 | disposition home or self-care (01) | DRG 390 ==
LOC: ER 13:36 → MED/SURG 15:52
PROVIDERS: ADMIT Internal Medicine; ATTEND Internal Medicine
DX: Z23 Encounter for immunization; K56.600 Partial intestinal obstruction, unspecified as to cause; R10.84 Generalized abdominal pain; R11.2 Nausea with vomiting, unspecified; I10 Essential (primary) hypertension
CPT/HCPCS: 36415; 71010; 71045; 74000; 74018; 74022; 80053; 81001; 82150; 82947; 83690; 85025; 90674; 90686; 96365; 96374; 96375; 99284; A4222; J2175; J2765; J7030